=== PATIENT | female | born 1950 | race Caucasian/White ===

== ENCOUNTER 2020-02-20 10:01 | Outpatient (CLI) | payer OTHER, SELFPAY ==
--- NOTE | ~2020-02-20 | XR_ITS ---
EXAMINATION: XR chest 2V 02/20/2020 10:15 INDICATION: Chest pain and dyspnea PROCEDURE: 2 view chest COMPARISON: Comparison to multiple prior studies sequentially, with oldest reviewed study dated 02/03. FINDINGS: The lungs are clear. The cardiomediastinal silhouette is within normal limits. There are no pleural effusions. There is no pneumothorax suspected. IMPRESSION: 1: NO ACUTE CARDIOPULMONARY DISEASE. Reviewed, dictated and finalized at location A.
== END 2020-02-20 10:02 | disposition home or self-care (01) ==
LOC: ANHIMG 10:05
PROVIDERS: PCP Family Medicine; Visit Provider Physician Assistant
DX: R07.89 Other chest pain (principal)
CPT/HCPCS: 71046

== ENCOUNTER 2020-04-06 12:27 | Outpatient (CLI) | payer OTHER, SELFPAY ==
--- NOTE | 2020-04-09 11:26 | WPDPFTINT ---
PFT Interpretation PFT Interpretation: This PFT met all criteria for ATS standards and reproducibility FEV/FVC post bronchodilator 82% of predicted FEV1 111% of predicted or 1.99 liters FVC 96% or 2.43 liters TLC 89% or 3.78 liters RV 70% RV/TLC 31 % DLCO 85% of predicted when adjusted for alveolar volume but not adjusted for hemoglobin Flow volume loops were normal Impression: Normal PFT. Clinical correlation is advised.
--- NOTE | 2020-04-09 11:28 | WPDSIXMINUTE ---
Six Minute Walk Six Minute Walk: The patients O2 sats started 96% and dropped as low as 91% Total walk distance 396 meters conclusion: This patient does not qualify for home oxygen therapy
== END 2020-04-06 12:28 | disposition home or self-care (01) ==
PROVIDERS: PCP Family Medicine; Visit Provider Internal Medicine Critical Care Medicine
DX: R06.02 Shortness of breath (principal)
CPT/HCPCS: 94060; 94618; 94726; 94729

== ENCOUNTER 2020-04-11 17:09 | Emergency (ER) | payer OTHER, SELFPAY ==
--- NOTE | ~2020-04-11 | CT_ITS ---
EXAMINATION: CT abdomen pelvis w con INDICATION: Lower abdominal pain TECHNIQUE: Computed tomographic images of the abdomen and pelvis were obtained after the administrati on of 100 cc of Omnipaque 350 intravenous contrast. The dose-length product (DLP) was 525.07 mGy-cm. Automated exposure control and iterative reconstruction technique were employed. COMPARISON: 10/16/2019 FINDINGS: Minimal dependent atelectasis is present in the lung bases. The heart size is normal. The g allbladder is surgically absent. There is mild enlargement of the common bile duct and central intrah epatic ducts which is likely due to post cholecystectomy state. The liver, spleen, pancreas, and adre nal glands are normal. Hypoattenuating lesions in the kidneys, measuring up to 3 mm, are too small to characterize but likely represent cysts. No pathologically enlarged abdominal or pelvic lymph nodes are identified. Colonic diverticulosis is noted. There is wall thickening of the sigmoid colon with e dematous stranding of the perisigmoid fat. There is no evidence of perforation or abscess. There is m oderate lumbar spondylosis at L5-S1. IMPRESSION: 1. Acute uncomplicated sigmoid diverticulitis. Reviewed, dictated and finalized at location A.
[2020-04-11 17:30] VITALS: BP 121/96; PULSE 95; RESP 16; TEMP 36.3; O2SAT 97
[2020-04-11 17:41] LABS: Basophils Percent Auto 0.3 % (0.2-1.2); Eosinophils Absolute Auto 0.1 K/mm3 (0-0.3); Eosinophils Percent Auto 0.8 % (0-4.4); Hematocrit 40.8 % (37.0-47.0); Hemoglobin 13.3 g/dL (12.0-15.0); Immature Granulocyte Absolute 0.03 K/mm3 (0.00-0.031); Immature Granulocyte Percent A 0.3 % (0-0.5); Lymphocytes Absolute Auto 1.52 K/mm3 (0.9-3.2); Lymphocytes Percent Auto 15.9 % (18.3-44.2); Mean Corpuscular HGB Conc 32.6 g/dl (32-36); Mean Corpuscular Hemoglobin 29.4 pg (26-34); Mean Corpuscular Volume 90.1 fl (80-100); Mean Platelet Volume 8.6 fl (7.4-10.4); Monocytes Absolute Auto 0.8 K/mm3 (0.1-0.6); Monocytes Percent Auto 8.6 % (2.6-8.5); Neutrophils Absolute Auto 7.1 K/mm3 (1.3-6.7); Neutrophils Percent Auto 74.1 % (45.5-73.1); Platelet Count Result 249 k/mm3 (150-375); Red Blood Count 4.53 M/mm3 (4.2-5.4); White Blood Count 9.6 K/mm3 (4.5-10.0)
[2020-04-11 17:57] LABS: Alanine Aminotransferase 14 U/L (4-35); Albumin Level 4.1 g/dL (3.5-5.1); Alkaline Phosphatase 84 U/L (38-126); Aspartate Amino Transferase 22 U/L (14-36); Bilirubin,Total 0.8 mg/dL (0.2-1.3); Blood Urea Nitrogen 11 mg/dL (7-17); Calcium 8.8 mg/dL (8.4-10.2); Carbon Dioxide 26 mmol/L (22-30); Chloride 103 mmol/L (98-107); Estimated CRCL calculation 53 ml/min; Estimated Glomerular Filt Rate > 60; Glucose 114 mg/dL (65-105); Lipase 22 U/L (23-300); Potassium 4.1 mmol/L (3.4-5.0); Sodium 136 mmol/L (137-145)
[2020-04-11 18:05] LABS: Add Urine Microscopic? YES; Appearance Urine Clear (Clear); Bacteria Urine Trace /hpf; Bilirubin Urine Negative (Negative); Blood Urine Negative (Negative); Color Urine Yellow (Yellow); Glucose Urine UA Negative (Negative); Ketones Urine Negative (Negative); Leukocyte Esterase Ur 2+ LEU/UL (Negative); Mucus Urine Heavy /lpf; Nitrate Urine Negative (Negative); Protein Urine Negative (Negative); Specific Grav Ur 1.027 (1.001-1.035); Squamous Epithelial Cell Urine Occasional /hpf (Few); Urobilinogen Urine Negative mg/dL (<2.0); WBC Urine 31-50 /hpf
--- NOTE | 2020-04-11 18:35 | ED.ABDPAIN ---
HPI - Abdominal Pain General Chief Complaint: Abdominal Pain Stated Complaint: I have diverticulitis Time Seen by Provider: 04/11/20 18:34 History of Present Illness HPI narrative: Lower abdoinal pain since Monday. Moderate intensity. Feels the same as previous diverticulitis. Started antibiotics that her PCP gave her a few months ago incase she had a flare while on vacation. Developed nausea today, which made her concerned because she had never had this in the past. Related Data Home Medications Medication Instructions Recorded Confirmed aspirin 325 mg tablet 325 mg PO DAILY 09/19/19 03/04/20 calcium carbonate 500 mg (1,250 1 tablet PO BID 09/19/19 03/04/20 mg)-vitamin D3 200 unit tablet psyllium husk 0.52 gram capsule 0.52 gm PO DAILY 10/31/19 03/04/20 Allergies Allergy/AdvReac Type Severity Reaction Status Date / Time atorvastatin Allergy Unknown mouth Verified 02/17/20 14:39 sores and swelling diazepam Allergy Unknown hyper Verified 02/17/20 14:39 hydrocodone Allergy Unknown tongue Verified 02/17/20 14:39 swelling montelukast Allergy Unknown Cough Verified 02/17/20 14:39 oxycodone Allergy Unknown Unknown Verified 02/17/20 14:39 rosuvastatin Allergy Unknown sore mouth Verified 02/17/20 14:39 and gingiva Sulfa (Sulfonamide Allergy Unknown Unknown Verified 02/17/20 14:39 Antibiotics) tramadol Allergy Unknown unknown Verified 02/17/20 14:39 SUNSCREENS Allergy Intermediate ITCHING Uncoded 02/17/20 14:39 Review of Systems Review of Systems: All systems reviewed & are unremarkable except as noted in HPI and below Constitutional: Constitutional: Denies fever(s) Cardiovascular: Cardiovascular: Denies chest pain Respiratory: Respiratory: Denies dyspnea Gastrointestinal: Gastrointestinal: Reports abdominal pain, Denies diarrhea, Reports nausea and Denies vomiting Genitourinary: Genitourinary: Denies hematuria and Denies dysuria Musculoskeletal: Musculoskeletal: Denies back pain [facility] Past Medical History Medical History Diverticulitis (~01/13/18) multiple episodes DVT (deep venous thrombosis) (~2010) DVT prophylaxis FH: colon polyps History of pulmonary embolism (~2010) 2010 Normal colonoscopy 2017 no polyps. 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 on her hand not caodaism History of tonsillectomy Hx of cholecystectomy (~2016) Family History Family History Father Carcinoma of colon Family history of hypercholesterolemia Hypertension Family history of cardiovascular disease Family history of heart disease in male family member before age 55 Mother Carcinoma of colon Family history of hypercholesterolemia Acute myocardial infarction CHF (congestive heart failure) Social History Social History Smoking status: Never smoker Alcohol intake: current Substance use: never Substance use type: does not use Gender identity (if verbalized by the patient): Female Spiritual care concerns: No Agree to blood products: Yes Exam Const: General: healthy appearing, no acute distress and alert Orientation/consciousness: patient oriented x3 HENMT: Head: normal to inspection Neck: Neck: normal visual inspection and no lymphadenopathy Chest: Chest palpation & inspection: no tenderness Resp: Effort & Inspection: normal respiratory effort Auscultation: clear to auscultation bilaterally, no rales, no rhonchi and no wheezes Cardio: Jugular v
== END 2020-04-11 19:45 | disposition home or self-care (01) ==
PROVIDERS: Emergency Medicine; Emergency Provider Emergency Medicine; PCP Family Medicine
DX: K57.32 Diverticulitis of large intestine without perforation or abscess without bleeding (principal); Z79.82 Long term (current) use of aspirin; Z86.718 Personal history of other venous thrombosis and embolism; Z86.711 Personal history of pulmonary embolism
CPT/HCPCS: 36415; 74177; 80053; 81001; 83690; 85025; 87086; 99284; Q9967

== ENCOUNTER 2020-07-22 13:38 | Outpatient (CLI) | payer OTHER, SELFPAY ==
--- NOTE | 2020-07-22 14:53 | ECG_ITS ---
Measurements Intervals Jenkins Rate: 71 P: 35 MI: 176 QRS: 5 QRSD: 95 T: 20 QT: 381 QTc: 414 Interpretive Statements SINUS RHYTHM DELAYED PRECORDIAL R/S TRANSITION BASELINE ARTIFACT- I, II, III, AVR, AVL BORDERLINE ECG Electronically Signed On 07-22-2020 15:00:25 CDT by Wale Martinez D.O.
[2020-07-22 15:13] LABS: Hematocrit 41.4 % (37.0-47.0); Hemoglobin 13.5 g/dL (12.0-15.0)
== END 2020-07-22 13:39 | disposition home or self-care (01) ==
LOC: ANHSURGERY 13:40
PROVIDERS: Anesthesiology; PCP Family Medicine; Visit Provider Surgery
DX: Z01.818 Encounter for other preprocedural examination (principal); K57.32 Diverticulitis of large intestine without perforation or abscess without bleeding; E78.2 Mixed hyperlipidemia
CPT/HCPCS: 36415; 85014; 85018; 86850; 86900; 86901; 93005

== ENCOUNTER 2020-07-25 02:12 | Outpatient (CLI) | payer OTHER, SELFPAY ==
[2020-07-25 18:59] LABS: SARS-CoV-2 RNA PCR Negative
== END 2020-07-25 02:13 | disposition home or self-care (01) ==
LOC: ANHCOVIDDT 02:13
PROVIDERS: PCP Family Medicine; Visit Provider Surgery
DX: Z01.812 Encounter for preprocedural laboratory examination (principal); Z20.828 Contact with and (suspected) exposure to other viral communicable diseases
CPT/HCPCS: 87635; C9803; U0003

== ENCOUNTER 2020-07-28 14:07 | Inpatient (IN) | payer OTHER, SELFPAY ==
[2020-07-22 14:05] VITALS: BMI 30.9
[2020-07-22 14:06] VITALS: BP 142/89; PULSE 83; RESP 18; TEMP 37.8; O2SAT 96
[2020-07-28] VITALS (15 sets, daily range): BP systolic 94–125; BP diastolic 56–83; PULSE 66–87; RESP 10–18; TEMP 36–37; O2SAT 95–99
--- NOTE | 2020-07-28 07:35 | WPDANESEPPF ---
Anes - Initial Pre Proc Eval Procedure: Operation Date: 07/28/20 09:00 Proposed Procedures p Hand Assisted Laparoscopic Sigmoid Colectomy - Hermann Gant DO Date/Time: 07/28/20 07:35 Surgeon: Hermann Gant DO Pre Op Diagnosis: Diverticulitis Patient Data Age: 70 Gender: F Height: 5 ft 1 in Weight: 74.2 kg Last Vital Signs Temp 37.8 C H 07/22/20 14:06 Pulse 83 07/22/20 14:06 Resp 18 07/22/20 14:06 BP 142/89 H 07/22/20 14:06 Pulse Ox 96 07/22/20 14:06 Allergies Allergy/AdvReac Type Severity Reaction Status Date / Time atorvastatin Allergy Unknown TONGUE Verified 07/28/20 07:15 BURNING Sulfa (Sulfonamide Allergy Unknown Unknown Verified 07/28/20 07:15 Antibiotics) diazepam AdvReac Unknown hyperactivi Verified 07/28/20 07:15 ty montelukast AdvReac Unknown Cough Verified 07/28/20 07:15 oxycodone AdvReac Unknown TONGUE Verified 07/28/20 07:15 BURNING rosuvastatin AdvReac Unknown tongue Verified 07/28/20 07:15 burning SUNSCREENS Allergy Intermediate ITCHING Uncoded 07/22/20 13:53 Home Medications Medication Instructions Recorded Confirmed Type aspirin 325 mg tablet 325 mg PO DAILY 09/19/19 07/28/20 History psyllium husk 0.52 gram capsule 1.5 gm PO BID 10/31/19 07/28/20 History budesonide-formoterol HFA 160 1 puff INHALATION Q12H #10.2 gm 03/23/20 07/28/20 Rx mcg-4.5 mcg/actuation aerosol inhaler inhalational spacing device #1 each 03/23/20 04/24/20 Rx aspirin [Aspirin Low Dose] 81 mg PO DAILY 07/22/20 07/28/20 History calcium carbonate-vitamin D3 2 cap PO BID 07/22/20 07/28/20 History [Calcium 600 + D(3)] ezetimibe [Zetia] 10 mg PO HS 07/22/20 07/28/20 History omeprazole 40 mg PO QAM 07/22/20 07/28/20 History simvastatin 20 mg PO HS 07/22/20 07/28/20 History Patient hx anesthesia problems: none Family hx anesthesia problems: none PMFSH Past Medical History Medical History Cough productive of purulent sputum DVT (deep venous thrombosis) (~2010) DVT prophylaxis Exertional dyspnea FH: colon polyps History of pulmonary embolism (~2010) [facility] current use of anticoagulants with INR goal of 2.0-3.0 Normal colonoscopy 2017 no polyps. repeat in 5 years Normal nuclear stress test 5.18.20 Postmenopausal Sepsis Shingles Surgical History Surgical History H/O shoulder surgery x2 History of adenoidectomy History of appendectomy (~2009) History of hysterectomy (~1997) History of knee surgery History of surgical removal of squamous cell carcinoma of skin of mandaeism region on her hand not mandaeism History of tonsillectomy Hx of cholecystectomy (~2016) Family History Family History Father Carcinoma of colon Family history of hypercholesterolemia Hypertension Family history of cardiovascular disease Family history of heart disease in male family member before age 55 Mother Carcinoma of colon Family history of hypercholesterolemia Acute myocardial infarction CHF (congestive heart failure) Social History Social History Smoking status: Never smoker Alcohol intake: current Alcohol use details: VERY RARELY Substance use: never Substance use type: does not use Living arrangements: with family Gender identity (if verbalized by the patient): Female Spiritual care concerns: No Agree to blood products: Yes Anes - Eval Final PreProcedure Day of Procedure 07/28/20 07:35 Patient weight: obese Heart: regular rate and rhythm Lungs: clear to auscultation Airway: Mallampati scale class II Neurological: alert and oriented Last oral intake: >/= 8 hours ASA classification: III Emergent: no Anesthetic plan: proceed Anesthesia type and monitoring: general ETT and standard monitorin
[2020-07-28] MEDS: LACTATED RINGERS 1,000 ML 30 ML IV CONT ×2 (07:40→12:41)
[2020-07-28] MEDS: ACETAMINOPHEN 500 MG TABLET 1000 MG PO ×2 (07:41→17:41)
[2020-07-28] MEDS: KETOROLAC 15 MG/ML VIAL (*BKC) IV PUSH (07:41)
--- NOTE | 2020-07-28 08:50 | PM.IMHP ---
H&P: HPI History of Present Illness Date/Time: 07/28/20 08:50 Chief complaint: Diverticulitis Narrative: Gwen Cruz is a 70 year old female who presents with previous episodes of diverticulitis. She has been hospitalized twice for this in the past. She continues to have episodes about every 6 months and would like to have surgery to prevent this. Review of Systems Review of Systems: All systems reviewed & are unremarkable except as noted in HPI and below Constitutional: Constitutional: Denies chills, Denies fever(s), Denies headache(s) and Denies weight loss Eyes: Eyes: Denies change in vision ENT: Denies dizziness, Denies headache(s), Denies neck mass and Denies throat swelling Cardiovascular: Cardiovascular: Denies chest pain, Denies lightheadedness and Denies dyspnea Respiratory: Respiratory: Denies cough, Denies dyspnea and Denies wheezing Gastrointestinal: Gastrointestinal: Denies abdominal pain, Denies change in bowel habits, Denies nausea and Denies vomiting Genitourinary: Genitourinary: Denies hematuria and Denies dysuria Musculoskeletal: Musculoskeletal: Reports as per HPI Integumentary/Breasts: Skin/Breast: Reports as per HPI Neurologic: Denies dizziness and Denies headache(s) Allergic/Immunologic: Allergic/Immunologic: Denies throat swelling and Denies wheezing PMFSH Past Medical History Medical History Cough productive of purulent sputum DVT (deep venous thrombosis) (~2010) DVT prophylaxis Exertional dyspnea FH: colon polyps History of pulmonary embolism (~2010) 2010 [employer] operations [employer] current use of anticoagulants with INR goal of 2.0-3.0 Normal colonoscopy 2018 no polyps. repeat in 5 years Normal nuclear stress test 5.18.20 Postmenopausal Sepsis Shingles Surgical History Surgical History H/O shoulder surgery x2 History of adenoidectomy History of appendectomy (~2009) History of hysterectomy (~1997) History of knee surgery History of surgical removal of squamous cell carcinoma of skin of jew region on her hand not jew History of tonsillectomy Hx of cholecystectomy (~2016) Family History Family History Father Carcinoma of colon Family history of hypercholesterolemia Hypertension Family history of cardiovascular disease Family history of heart disease in male family member before age 55 Mother Carcinoma of colon Family history of hypercholesterolemia Acute myocardial infarction CHF (congestive heart failure) Social History Social History Smoking status: Never smoker Alcohol intake: current Alcohol use details: VERY RARELY Substance use: never Substance use type: does not use Living arrangements: with family Gender identity (if verbalized by the patient): Female Spiritual care concerns: No Agree to blood products: Yes Meds Home Medications and Allergies Home Medications Medication Instructions Recorded Confirmed Type aspirin 325 mg tablet 325 mg PO DAILY 09/19/19 07/28/20 History psyllium husk 0.52 gram capsule 1.5 gm PO BID 10/31/19 07/28/20 History budesonide-formoterol HFA 160 1 puff INHALATION Q12H #10.2 gm 03/23/20 07/28/20 Rx mcg-4.5 mcg/actuation aerosol inhaler inhalational spacing device #1 each 03/23/20 04/24/20 Rx aspirin [Aspirin Low Dose] 81 mg PO DAILY 07/22/20 07/28/20 History calcium carbonate-vitamin D3 2 cap PO BID 07/22/20 07/28/20 History [Calcium 600 + D(3)] ezetimibe [Zetia] 10 mg PO HS 07/22/20 07/28/20 History omeprazole 40 mg PO QAM 07/22/20 07/28/20 History simvastatin 20 mg PO HS 07/22/20 07/28/20 History Allergies Allergy/AdvReac Type Severity Reaction Status Date / Time atorvastatin Allergy Unknown TONGUE Verified 07/28/20 07:15 BURNING Sulfa (Sulfonamide Cody
[2020-07-28] MEDS: HEPARIN SODIUM 5,000 UNITS/ML VIAL 5000 UNITS SUB-Q (08:58)
--- NOTE | 2020-07-28 09:21 | WPDHPUPDATE1 ---
History and Physical Update Update Date/Time: 07/28/20 09:21 History and Physical has been reviewed, including an updated exam of the patient. There are NO changes in the patient's condition. Risks, benefits, and alternatives have been discussed and questions answered. Patient agrees to proceed with procedure.
[2020-07-28] MEDS: ceFAZolin 2 GM/D5W 50 ML 2 GM/50 ML BAG IVPB (09:33)
[2020-07-28] MEDS: metroNIDAZOLE 500 MG/ISO 100ML 500 MG/100 ML BAG 100 MG IVPB (09:45)
--- NOTE | 2020-07-28 12:28 | PM.PROC ---
Procedure Note - Detailed Date of procedure: 07/28/20 Pre-op diagnosis: Diverticulitis sigmoid colon Post-op diagnosis: same Procedure performed: Hand assisted laparoscopic sigmoid colectomy with colorectal anastomosis Description of procedure: Procedure as well as risks benefits and alternatives were explained to the patient. Written consent was obtained and placed in chart prior to procedure. Patient was brought back to surgical suite. She was placed supine on operating table. Time-out was done to confirm patient procedure. She was then intubated by the anesthesia department. She was re-positioned to modified lithotomy position. Her abdomen was prepped and draped in sterile fashion using chlorhexidine prep. Her rectum was irrigated with Betadine and her perirectal area was prepped and draped in sterile fashion using Betadine prep. A 7 centimeter vertical incision was made just inferior to the umbilicus using a 15 blade scalpel. Electrocautery was used for hemostasis and for dissection down through Birdie's fascia. The linea alba was then incised using electrocautery. The peritoneum was bluntly entered using a curved hemostats. A carefully inspected the abdomen through the small hand port incision, and then placed the wound protector at this incision followed by the gel port with a 5 millimeter trocar placed through it. Carbon dioxide insufflation was then used to create a pneumoperitoneum. The abdomen was inspected, and no significant abnormalities were identified. The patient was then placed in steep Trendelenburg position and rotated to the right. Exparel was infiltrated bilaterally along the abdominal wall to perform a transversus abdominis plane block. A 5 millimeter incision was made in the suprapubic region and in the right upper quadrant and 5 millimeter ports were placed under direct visualization. A 12 millimeter incision was made in the right lower quadrant, and a 12 millimeter port was placed under direct visualization. I placed my left hand through the GelPort and carefully inspected the colon. The sigmoid colon was retracted anteriorly to tent up the inferior mesenteric artery and mesocolon. The medial side of the peritoneum was scored using hook electrocautery. I entered into the avascular retroperitoneal plane and continued the medial to lateral dissection. The left ureter was identified and preserved in its location throughout the entire case. The continued dissection with hook electrocautery and ligasure bipolar cautery to clear off the adventitia around the inferior mesenteric artery. Once the inferior mesenteric artery was isolated, I then ligated it with the ligasure bipolar cautery. The ureter was identified and position was verified before ligating the vessel. I then continued along the medial to lateral plane and dissected out to the lateral peritoneal attachments of the descending and sigmoid colon. I then continued this dissection distally along the upper rectum. The sigmoid colon was then retracted further medially and the lateral peritoneal attachments were taken down using hook electrocautery. I continued this dissection up to the descending colon using ligasure bipolar cautery. The descending colon appeared mobile enough to come down into the pelvis. I then cleared off an area on the upper rectum and took down the mesorectum using ligasure bipolar cautery. The echelon 60 millimeter blue load stapler was then advanced across the upper rectum and clamped and fired. This freed up our rectum completely. The staple line appeared secure. Indocyanine green was then infused intravenously to assess for perfusion to the colon and rectal stump. Perfusion appeared adequate at both ends. The patient was then flattened out in bed and the pneumoperitoneum was released. The sigmoid colon was then delivered through the wound protector and the GelPort was removed. The segment of colon was inspected. I identified an area along the alissa
--- NOTE | 2020-07-28 14:15 | ADMGEN ---
This patient, Gwen Cruz, was admitted to [facility] S[facility] Room 300-01. Patient/family oriented to hospital policies and general routines including ID bracelet, bed and alarms, visiting hours, pain management, procedures, bathroom and other care routines, personal items, smoking policy, room service/diet, and visiting hours. Valuables list has been completed. Information on how to activate the Rapid Response Team has been discussed. Patient/Family are encouraged to report perceived risks to care and to ask questions if they do not understand what they are told or what they should do.
[2020-07-28] MEDS: LACTATED RINGERS 1,000 ML 100 ML IV CONT (14:39)
[2020-07-28] MEDS: HYDROmorphone HCL INJ (*CRX) 1 MG/ML SYR IV PUSH (19:18)
[2020-07-28] MEDS: SIMVASTATIN 20 MG TABLET PO (19:58)
[2020-07-28] MEDS: ENOXAPARIN 30 MG/0.3 ML SYRINGE SUB-Q (19:58)
[2020-07-29] VITALS (10 sets, daily range): BP systolic 97–121; BP diastolic 58–79; PULSE 66–71; RESP 16–18; TEMP 36–36.7; O2SAT 95–97
[2020-07-29] MEDS: ACETAMINOPHEN 500 MG TABLET 1000 MG PO ×2 (00:20→06:19)
[2020-07-29] MEDS: LACTATED RINGERS 1,000 ML 100 ML IV CONT (01:19)
[2020-07-29 05:47] LABS: Basophils Percent Auto 0.2 % (0.2-1.2); Hematocrit 36.5 % (37.0-47.0); Hemoglobin 12.1 g/dL (12.0-15.0); Immature Granulocyte Absolute 0.07 K/mm3 (0.00-0.031); Immature Granulocyte Percent A 0.5 % (0-0.5); Lymphocytes Absolute Auto 1.04 K/mm3 (0.9-3.2); Mean Corpuscular HGB Conc 33.2 g/dl (32-36); Mean Corpuscular Hemoglobin 29.5 pg (26-34); Mean Platelet Volume 8.7 fl (7.4-10.4); Monocytes Absolute Auto 0.7 K/mm3 (0.1-0.6); Monocytes Percent Auto 5.2 % (2.6-8.5); Neutrophils Absolute Auto 11.1 K/mm3 (1.3-6.7); Neutrophils Percent Auto 86.1 % (45.5-73.1); Platelet Count Result 267 k/mm3 (150-375); Red Cell Distribution Width 13.8 % (11.5-14.5); White Blood Count 12.9 K/mm3 (4.5-10.0)
[2020-07-29 06:08] LABS: Anion Gap 6 mmol/L (8-16); Blood Urea Nitrogen 11 mg/dL (7-17); Calcium 9.1 mg/dL (8.4-10.2); Carbon Dioxide 30 mmol/L (22-30); Chloride 104 mmol/L (98-107); Estimated CRCL calculation 55 ml/min; Estimated Glomerular Filt Rate > 60; Glucose 140 mg/dL (65-105); Potassium 4.9 mmol/L (3.4-5.0); Sodium 140 mmol/L (137-145)
--- NOTE | 2020-07-29 07:47 | P.PNAN_ITS ---
Anes - Prog Note Post-Op Date/Time: 07/29/20 07:47 Cardiovascular status: normal Respiratory status: normal Airway patency: baseline Mental status: baseline Post-Op hydration status: normal Vital Signs: Last Vital Signs Temp 36.4 C L 07/29/20 04:00 Pulse 68 07/29/20 04:00 Resp 16 07/29/20 04:00 BP 100/58 L 07/29/20 04:00 Pulse Ox 96 07/29/20 04:00 Pain Score (VAS): 0 I/O: Intake & Output 07/28/20 07/28/20 07/29/20 15:59 23:59 07:59 Intake Total 649 450 3231 Output Total 60 250 1250 Balance 90 400 550 Laboratory Tests 07/29/20 05:11 07/29/20 05:11 07/29/20 07/29/20 05:11 05:11 WBC 12.9 H RBC 4.10 L Hgb 12.1 Hct 36.5 L MCV 89.0 MCH 29.5 MCHC 33.2 RDW 13.8 Plt Count 267 MPV 8.7 Immature Gran % (Auto) 0.5 Neut % (Auto) 86.1 H Lymph % (Auto) 8.0 L [place] % (Auto) 5.2 Eos % (Auto) 0.0 Baso % (Auto) 0.2 Lymph # (Auto) 1.04 [place] # (Auto) 0.7 H Eos # (Auto) 0.0 Baso # (Auto) 0.0 Abs Immat Gran (auto) 0.07 H Absolute Neuts (auto) 11.1 H Absolute Nucleated RBC 0.0 Nucleated RBC % 0.0 Sodium 140 Potassium 4.9 Chloride 104 Carbon Dioxide 30 Anion Gap 6 L BUN 11 Creatinine 0.80 Estim Creat Clear Calc 55 Estimated GFR > 60 Glucose 140 H Calcium 9.1 Post-procedural complaints: none Patient Feedback: Patient satisfied with anesthetic care.
[2020-07-29] MEDS: ENOXAPARIN 30 MG/0.3 ML SYRINGE SUB-Q ×2 (08:19→20:13)
[2020-07-29] MEDS: PANTOPRAZOLE 40 MG TABLET PO (08:19)
[2020-07-29] MEDS: ASPIRIN 81 MG ENTERIC TABLET PO (08:20)
--- NOTE | 2020-07-29 10:11 | PM.PNGS ---
Progress Note: A&P Assessment and Plan (1) Diverticulitis large intestine w/o perforation or abscess w/o bleeding: Code(s): K57.32 - Diverticulitis of large intestine without perforation or abscess without bleeding Status: Acute Assessment and Plan: Advance to full liquids today. Increase activity. Soliman out and stop IV fluids. Transition to oral pain meds. (2) GERD (gastroesophageal reflux disease): Qualifiers: Esophagitis presence: with esophagitis Qualified Code(s): K21.0 - Gastro-esophageal reflux disease with esophagitis Code(s): K21.9 - Gastro-esophageal reflux disease without esophagitis Status: Acute (3) History of pulmonary embolism: Onset Date: ~2010 Code(s): Z86.711 - Personal history of pulmonary embolism Status: Acute Assessment and Plan: Continue DVT prophylaxis Subjective Subjective Date/Time Seen: 07/29/20 10:11 Passing flatus, no BM yet. Pain controlled. Tolerating clears. No n/v. Exam GI: Inspection: incision (intact with glue) GI Palp: Yes Tenderness to palpation present (GI) (incisional) Auscultation: normal bowel sounds Objective Data Vital Signs Vital Signs: Vital Signs - 24 hr 07/28/20 12:41 07/28/20 12:55 07/28/20 13:10 Temperature 36.4 C L Pulse Rate 83 76 74 Respiratory Rate 10 L 12 12 Blood Pressure 115/69 101/64 105/66 Pulse Oximetry 96 97 98 07/28/20 13:20 07/28/20 13:35 07/28/20 13:50 Temperature Pulse Rate 69 66 76 Respiratory Rate 12 12 16 Blood Pressure 101/71 99/70 L 114/66 Pulse Oximetry 96 99 99 07/28/20 14:07 07/28/20 14:22 07/28/20 14:52 Temperature 36.3 C L 36.3 C L 36.0 C L Pulse Rate 72 71 84 Respiratory Rate 16 16 16 Blood Pressure 114/67 112/66 120/73 Pulse Oximetry 99 99 98 07/28/20 15:52 07/28/20 16:43 07/28/20 19:21 Temperature 36.2 C L Pulse Rate 85 75 Respiratory Rate 16 18 Blood Pressure 125/82 Pulse Oximetry 99 98 95 07/28/20 19:52 07/28/20 23:52 07/29/20 04:00 Temperature 36.8 C 36.4 C 36.4 C L Pulse Rate 87 80 68 Respiratory Rate 16 16 16 Blood Pressure 116/66 94/56 L 100/58 L Pulse Oximetry 95 96 96 07/29/20 07:52 07/29/20 08:00 07/29/20 08:25 Temperature 36.0 C L Pulse Rate 71 71 Respiratory Rate 18 18 Blood Pressure 97/59 L Pulse Oximetry 97 97 96 07/29/20 08:36 Temperature Pulse Rate Respiratory Rate Blood Pressure 104/60 Pulse Oximetry Intake/Output Intake/Output: Intake & Output 07/26/20 07/27/20 07/28/20 07/29/20 23:59 23:59 23:59 23:59 Intake Total 800 2040 Output Total 310 1250 Balance 490 790 Meds/Results Medications: Active Medications Generic Name Dose Route Start Last Admin Trade Name Freq PRN Reason Stop Dose Admin Acetaminophen 1,000 mg 07/28/20 18:00 07/29/20 06:19 Acetaminophen 500 Mg Tablet PO 1,000 mg Q6HR SERENE Administration Artificial Tears 1 drop 07/28/20 15:39 07/28/20 17:41 Artificial Tears Op Soln 15 Ml Bottle EACH EYE 1 drop QID PRN Administration Dry Eye(s) Aspirin 81 mg 07/29/20 09:00 07/29/20 08:20 Aspirin 81 Mg Enteric Tablet PO 81 mg DAILY SERENE Administration Budesonide/Formoterol Fumarate 1 puff 07/28/20 20:00 07/29/20 08:29 Budesonide/Form 160-4.5 Mcg (*Sp) INHALATION 1 puff Q12HRT SERENE Administration Enoxaparin Sodium 30 mg 07/28/20 21:00 07/29/20 08:19 Enoxaparin 30 Mg/0.3 Ml Syringe SUB-Q 30 mg Q12HR SERENE Administration Hydromorphone HCl 1 mg 07/28/20 14:07 07/28/20 19:18 Hydromorphone Hcl Inj (*Crx) 1 Mg/Ml Syr IV PUSH 1 mg Q2H PRN Administration Pain Rated 7-10 Hydromorphone HCl 0.5 mg 07/28/20 14:07 Hydromorphone Hcl Inj (*Crx) 1 Mg/Ml Syr IV PUSH Q2H PRN Pain Rated 4-6 Ondansetron HCl 4 mg 07/28/20 14:07 Ondansetron Inj 4 Mg/2 Ml Vial IV PUSH Q4H PRN Nausea And Vomiting Pantoprazole Sodium 40 mg 07/29/20 09:00 07/29/20 08:19 Pantoprazole
[2020-07-29] MEDS: ACETAMINOPHEN 325 MG TABLET 650 MG PO (14:12)
[2020-07-29] MEDS: HYDROcodone/acetaminophen (*CRX) 10-325 MG TABLET 1 TAB PO (19:03)
[2020-07-29] MEDS: SIMVASTATIN 20 MG TABLET PO (20:12)
[2020-07-30] MEDS: HYDROcodone/acetaminophen (*CRX) 10-325 MG TABLET 1 TAB PO ×5 (00:06→22:48)
[2020-07-30 05:35] VITALS: BP 135/75; PULSE 72; RESP 18; TEMP 36.4; O2SAT 97
[2020-07-30 06:25] LABS: Anion Gap 4 mmol/L (8-16); Blood Urea Nitrogen 11 mg/dL (7-17); Calcium 8.6 mg/dL (8.4-10.2); Carbon Dioxide 34 mmol/L (22-30); Chloride 104 mmol/L (98-107); Estimated CRCL calculation 54 ml/min; Estimated Glomerular Filt Rate > 60; Glucose 97 mg/dL (65-105); Potassium 4.3 mmol/L (3.4-5.0); Sodium 142 mmol/L (137-145)
[2020-07-30 06:34] LABS: Hematocrit 34.4 % (37.0-47.0); Hemoglobin 11.2 g/dL (12.0-15.0); Mean Corpuscular HGB Conc 32.6 g/dl (32-36); Mean Corpuscular Hemoglobin 29.6 pg (26-34); Mean Corpuscular Volume 90.8 fl (80-100); Mean Platelet Volume 8.9 fl (7.4-10.4); Platelet Count Result 273 k/mm3 (150-375); Red Blood Count 3.79 M/mm3 (4.2-5.4); Red Cell Distribution Width 14.4 % (11.5-14.5); White Blood Count 10.1 K/mm3 (4.5-10.0)
[2020-07-30 08:00] VITALS: PULSE 72; RESP 18; O2SAT 97
[2020-07-30] MEDS: ASPIRIN 81 MG ENTERIC TABLET PO (08:28)
[2020-07-30] MEDS: ENOXAPARIN 30 MG/0.3 ML SYRINGE SUB-Q ×2 (08:28→20:23)
[2020-07-30] MEDS: PANTOPRAZOLE 40 MG TABLET PO (08:28)
[2020-07-30 14:00] VITALS: BP 123/74; PULSE 77; RESP 16; TEMP 36.5; O2SAT 91
--- NOTE | 2020-07-30 15:08 | PM.DS ---
DS: Admitting Diagnosis Admitting Diagnosis Admitting Diagnosis: Diverticulitis sigmoid colon DS: Discharge Diagnosis Discharge Diagnosis (1) Diverticulitis large intestine w/o perforation or abscess w/o bleeding: Code(s): K57.32 - Diverticulitis of large intestine without perforation or abscess without bleeding Status: Acute (2) History of pulmonary embolism: Onset Date: Code(s): Z86.711 - Personal history of pulmonary embolism Status: Acute (3) GERD (gastroesophageal reflux disease): Qualifiers: Esophagitis presence: with esophagitis Qualified Code(s): K21.0 - Gastro-esophageal reflux disease with esophagitis Code(s): K21.9 - Gastro-esophageal reflux disease without esophagitis Status: Acute DS: Summary Hospital Course Reason for hospitalization: Recurrent diverticulitis Hospital Course: This is a 70-year-old woman who presented with multiple prior episodes of diverticulitis. She has been placed on antibiotics several times and states that she seems to have a flare up of diverticulitis about every 6 months. She has been hospitalized twice in the past for this. She has not had any prior episodes of complicated diverticulitis requiring abscess drainage or other procedures. She now presents for elective sigmoid colectomy to prevent future episodes of diverticulitis. She underwent hand assisted laparoscopic sigmoid colectomy on 07/28/2020. Procedure was uncomplicated and she did well postoperatively. On postop day 1 she was tolerating clear liquid diet and was advanced to a full liquid diet.Her pain was well controlled. On postop day 2 she was advanced to a soft regular diet. She had noticed a couple small blood clots in her stool and wanted to stay in the hospital 1 more day. On postop day 3 her pain was well controlled. She was still tolerating a regular diet. She was up ambulating without much difficulty. She was remaining hemodynamically stable and afebrile. She was discharged on postop day 3. Status at Discharge Functional status at discharge: independent ambulation Overall status at discharge: patient is progressing back to baseline Time Spent with Patient Time attestation: Total time spent providing and/or coordinating discharge services: Time spent: Less than 30 minutes Exam Resp: Effort & Inspection: normal respiratory effort Auscultation: clear to auscultation bilaterally Cardio: Rate: regular rate Rhythm: regular rhythm Heart sounds: S1 normal heart sound present and S2 normal heart sound present GI: Inspection: non-distended and incision (C/D/I) GI Palp: No abdominal tenderness, Yes Soft to palpation and No Guarding due to palpation present (GI) Percussion: Yes normal to percussion Auscultation: normal bowel sounds DS: Data Data Completed and Pending Completed studies during hospitalization: Pending at discharge 07/28/20 10:49 Surgical [PTH] Routine Labs on day of discharge: Labs from last 24 hours 07/30/20 07/30/20 05:34 05:34 WBC 10.1 H RBC 3.79 L Hgb 11.2 L Hct 34.4 L MCV 90.8 MCH 29.6 MCHC 32.6 RDW 14.4 Plt Count 273 MPV 8.9 Sodium 142 Potassium 4.3 Chloride 104 Carbon Dioxide 34 H Anion Gap 4 L BUN 11 Creatinine 0.80 Estim Creat Clear Calc 54 Estimated GFR > 60 Glucose 97 Calcium 8.6 Discharge Plan Discharge Attending physician on discharge: Hermann Gant Discharging Clinician: Hermann Gant Patient Disposition: Home, Self-Care Activity: may shower and other - see discharge instructions Diet: as tolerated Wound Care Instructions: other - see discharge instructions Discharge Instructions: Postop instructions May shower, no bathing or soaking x2 weeks No lifting greater than 10 lb for 6 weeks Continue soft regular diet for the next week, then may resume a regular high-fiber diet as tolerated Ambulate around the house at least
--- NOTE | 2020-07-30 15:23 | PC.NURSE ---
Called Dr Gant about pt having 2 blood clots while having a bowel movement. Left message with his office.
--- NOTE | 2020-07-30 15:45 | PM.PNGS ---
Progress Note: A&P Assessment and Plan (1) Diverticulitis large intestine w/o perforation or abscess w/o bleeding: Code(s): K57.32 - Diverticulitis of large intestine without perforation or abscess without bleeding Status: Acute Assessment and Plan: Advance to soft diet today Will keep patient today since she is having a couple blood clots in her stool Possibly home tomorrow (2) History of pulmonary embolism: Onset Date: ~2010 Code(s): Z86.711 - Personal history of pulmonary embolism Status: Acute Assessment and Plan: DVT prophylaxis (3) GERD (gastroesophageal reflux disease): Qualifiers: Esophagitis presence: with esophagitis Qualified Code(s): K21.0 - Gastro-esophageal reflux disease with esophagitis Code(s): K21.9 - Gastro-esophageal reflux disease without esophagitis Status: Acute Subjective Subjective Date/Time Seen: 07/30/20 15:45 Bowels moving. No nausea or vomiting. Tolerating full liquids. She has noticed a couple clots that she passed with BM's. Exam GI: Inspection: non-distended and incision (C/D/I) GI Palp: Yes Soft to palpation and No Tenderness to palpation present (GI) Auscultation: normal bowel sounds Objective Data Vital Signs Vital Signs: Vital Signs - 24 hr 07/29/20 15:52 07/29/20 19:30 07/29/20 20:33 Temperature 36.6 C Pulse Rate 69 67 Respiratory Rate 18 18 Blood Pressure 112/62 Pulse Oximetry 97 95 95 07/29/20 21:43 07/30/20 05:35 07/30/20 08:00 Temperature 36.7 C 36.4 C Pulse Rate 66 72 72 Respiratory Rate 16 18 18 Blood Pressure 121/79 135/75 Pulse Oximetry 95 97 97 07/30/20 14:00 Temperature 36.5 C Pulse Rate 77 Respiratory Rate 16 Blood Pressure 123/74 Pulse Oximetry 91 Intake/Output Intake/Output: Intake & Output 07/27/20 07/28/20 07/29/20 07/30/20 23:59 23:59 23:59 23:59 Intake Total 800 2960 500 Output Total 310 2150 3 Balance 490 810 497 Meds/Results Medications: Active Medications Generic Name Dose Route Start Last Admin Trade Name Freq PRN Reason Stop Dose Admin Acetaminophen 650 mg 07/29/20 10:19 07/29/20 14:12 Acetaminophen 325 Mg Tablet PO 650 mg Q6HR PRN Administration Pain Rated 1-3 Hydrocodone Bitart/Acetaminophen 1 tab 07/29/20 10:10 Hydrocodone/Acetaminophen (*Crx) 5-325 Mg Tablet PO Q4H PRN Pain Rated 4-6 Hydrocodone Bitart/Acetaminophen 1 tab 07/29/20 10:10 07/30/20 11:22 Hydrocodone/Acetaminophen (*Crx) 10-325 Mg Tablet PO 1 tab Q4H PRN Administration Pain Rated 7-10 Artificial Tears 1 drop 07/28/20 15:39 07/28/20 17:41 Artificial Tears Op Soln 15 Ml Bottle EACH EYE 1 drop QID PRN Administration Dry Eye(s) Aspirin 81 mg 07/29/20 09:00 07/30/20 08:28 Aspirin 81 Mg Enteric Tablet PO 81 mg DAILY SERENE Administration Budesonide/Formoterol Fumarate 1 puff 07/28/20 20:00 07/30/20 07:58 Budesonide/Form 160-4.5 Mcg (*Sp) INHALATION 1 puff Q12HRT SERENE Administration Enoxaparin Sodium 30 mg 07/28/20 21:00 07/30/20 08:28 Enoxaparin 30 Mg/0.3 Ml Syringe SUB-Q 30 mg Q12HR SERENE Administration Hydromorphone HCl 1 mg 07/28/20 14:07 07/28/20 19:18 Hydromorphone Hcl Inj (*Crx) 1 Mg/Ml Syr IV PUSH 1 mg Q2H PRN Administration Pain Rated 7-10 Hydromorphone HCl 0.5 mg 07/28/20 14:07 Hydromorphone Hcl Inj (*Crx) 1 Mg/Ml Syr IV PUSH Q2H PRN Pain Rated 4-6 Ondansetron HCl 4 mg 07/28/20 14:07 Ondansetron Inj 4 Mg/2 Ml Vial IV PUSH Q4H PRN Nausea And Vomiting Pantoprazole Sodium 40 mg 07/29/20 09:00 07/30/20 08:28 Pantoprazole 40 Mg Tablet PO 40 mg QAM SERENE Administration Simvastatin 20 mg 07/28/20 21:00 07/29/20 20:12 Simvastatin 20 Mg Tablet PO 20 mg HS SERENE Administration Labs Labs: Laboratory Results - last 24 hr 07/30/20 07/30/20 05:34 05:34 WBC 10.1 H RBC 3.79 L Hgb 11.2 L Hct 3
--- NOTE | 2020-07-30 16:33 | PC.NURSE ---
Dr. Gant called and said to keep the pt tonight 07/30/20 and he will evaluate her in the morning. He is going to have blood levels checked in AM. Monitor for blood clots from rectum.
[2020-07-30 20:00] VITALS: O2SAT 98
[2020-07-30] MEDS: SIMVASTATIN 20 MG TABLET PO (20:23)
[2020-07-30 20:31] VITALS: O2SAT 98
[2020-07-30 22:00] VITALS: BP 107/66; PULSE 93; RESP 18; TEMP 37.1; O2SAT 92
[2020-07-31] MEDS: HYDROcodone/acetaminophen (*CRX) 10-325 MG TABLET 1 TAB PO (05:49)
[2020-07-31 06:00] VITALS: BP 126/70; PULSE 90; RESP 20; TEMP 37.7; O2SAT 100
[2020-07-31 06:06] LABS: Hematocrit 37.3 % (37.0-47.0); Hemoglobin 11.9 g/dL (12.0-15.0); Mean Corpuscular HGB Conc 31.9 g/dl (32-36); Mean Platelet Volume 8.4 fl (7.4-10.4); Platelet Count Result 271 k/mm3 (150-375); Red Cell Distribution Width 14.5 % (11.5-14.5); White Blood Count 8.3 K/mm3 (4.5-10.0)
[2020-07-31 06:21] LABS: Anion Gap 3 mmol/L (8-16); Blood Urea Nitrogen 9 mg/dL (7-17); Calcium 8.7 mg/dL (8.4-10.2); Carbon Dioxide 37 mmol/L (22-30); Chloride 99 mmol/L (98-107); Estimated CRCL calculation 54 ml/min; Estimated Glomerular Filt Rate > 60; Glucose 97 mg/dL (65-105); Potassium 3.9 mmol/L (3.4-5.0); Sodium 139 mmol/L (137-145)
[2020-07-31 07:59] VITALS: PULSE 87; RESP 18; O2SAT 93
[2020-07-31 08:00] VITALS: TEMP 36.9
[2020-07-31] MEDS: PANTOPRAZOLE 40 MG TABLET PO (08:20)
[2020-07-31] MEDS: ENOXAPARIN 30 MG/0.3 ML SYRINGE SUB-Q (08:20)
[2020-07-31] MEDS: ASPIRIN 81 MG ENTERIC TABLET PO (08:20)
[2020-07-31] MEDS: HYDROcodone/acetaminophen (*CRX) 5-325 MG TABLET 1 TAB PO (11:41)
== END 2020-07-31 15:15 | disposition home or self-care (01) | DRG 331 ==
LOC: ANH3MEDSUR 14:10
PROVIDERS: Admitting Provider Surgery; PCP Family Medicine; Visit Provider Surgery
PROC: 0D1E4Z4 Bypass Large Intestine to Cutaneous, Percutaneous Endoscopic Approach (ICD-10-PCS; principal; 2020-07-28 09:00)
DX: K57.32 Diverticulitis of large intestine without perforation or abscess without bleeding (principal); K21.00 Gastro-esophageal reflux disease with esophagitis, without bleeding; Z79.82 Long term (current) use of aspirin; Z79.899 Other long term (current) drug therapy; Z86.711 Personal history of pulmonary embolism; Z86.718 Personal history of other venous thrombosis and embolism; Z90.49 Acquired absence of other specified parts of digestive tract
CPT/HCPCS: 36415; 80048; 85025; 85027; 88307; 94640; A9270; C1729; C9290; J0330; J0690; J1100; J1170; J1644; J1650; J1885; J2250; J2370; J2405; J2704; J2710; J3010; J7120

== ENCOUNTER 2020-08-03 12:03 | Outpatient (CLI) | payer OTHER, SELFPAY ==
--- NOTE | ~2020-08-03 | XR_ITS ---
EXAMINATION: XR chest 2V 08/03/2020 12:22 INDICATION: Shortness of breath PROCEDURE: 2 view chest COMPARISON: Comparison to multiple prior studies sequentially, with oldest reviewed study dated 03/30. FINDINGS: The lungs are clear. The cardiomediastinal silhouette is within normal limits. There are no pleural effusions. There is no pneumothorax suspected. There are cholecystectomy clips. IMPRESSION: 1: NO ACUTE CARDIOPULMONARY DISEASE. Reviewed, dictated and finalized at location B.
== END 2020-08-03 12:04 | disposition home or self-care (01) ==
LOC: ANHIMG 12:13
PROVIDERS: PCP Family Medicine; Visit Provider Surgery
DX: R06.02 Shortness of breath (principal)
CPT/HCPCS: 71046

== ENCOUNTER 2020-08-04 06:52 | Outpatient (NON) | payer OTHER, SELFPAY ==
[2020-08-04 19:01] LABS: SARS-CoV-2 RNA PCR Negative
== END 2020-08-04 06:53 ==
PROVIDERS: PCP Family Medicine; Visit Provider Surgery
DX: Z20.828 Contact with and (suspected) exposure to other viral communicable diseases (principal); R06.02 Shortness of breath; R50.9 Fever, unspecified
CPT/HCPCS: 87635; C9803; U0003

== ENCOUNTER 2020-08-11 08:31 | Outpatient (CLI) | payer OTHER, SELFPAY ==
--- NOTE | 2020-08-16 12:13 | WPDPFTINT ---
PFT Interpretation PFT Interpretation: Methacholine Challenge Study: The patient started with an FEV1 of 1.87 liters or 104% and 1.68 liters or 94% at level 6 or 25 mg of Methacholine. This is a normal Methacholine Challenge study and rules out the possibility of Asthma
== END 2020-08-11 08:32 | disposition home or self-care (01) ==
PROVIDERS: PCP Family Medicine; Visit Provider Internal Medicine Critical Care Medicine
DX: R06.02 Shortness of breath (principal)
CPT/HCPCS: 94070; J7674

== ENCOUNTER → 2020-11-12 10:02 | Outpatient (CLI) | payer OTHER, SELFPAY ==
--- NOTE | ~2020-11-12 | MM_ITS ---
EXAMINATION: MM screening jen BI w pierre HISTORY: Screening TECHNIQUE: Craniocaudal and mediolateral oblique 3-D tomosynthesis images were obtained and synthetic 2-D images were generated. CAD analysis was submitted and interpreted. COMPARISON: Comparison to multiple prior studies sequentially, with oldest reviewed study dated 02/02. BREAST PARENCHYMAL COMPOSITION: There are scattered areas of fibroglandular density. FINDINGS: There is no evidence of suspicious mass, calcification, or architectural distortion to sugg est malignancy in either breast. There has been no suspicious interval change. IMPRESSION: 1. No mammographic evidence of malignancy. 2. Recommend routine screening mammography in one year. BI-RADS Category 1: Negative Reviewed, dictated and finalized at location A. 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
== END ==
PROVIDERS: PCP Family Medicine; Visit Provider Family Medicine
DX: Z12.31 Encounter for screening mammogram for malignant neoplasm of breast (principal)
CPT/HCPCS: 77063; 77067

== ENCOUNTER → 2021-10-27 12:47 | Outpatient (CLI) | payer OTHER, SELFPAY ==
--- NOTE | ~2021-10-27 | MR_ITS ---
EXAMINATION: MR cervical spine wo con DATE: 10/27/2021 13:32 INDICATION: Cervicalgia. TECHNIQUE: Magnetic resonance imaging (MRI) of the cervical spine was performed without intravenous c ontrast. Sequences included sagittal T2-weighted FSE, sagittal T2-weighted FS FSE, sagittal T1-weight ed FSE, axial MERGE and axial T2-weighted FSE. COMPARISON: None FINDINGS: Straightening of the normal cervical lordosis. T1 hyperintense hemangioma at T4. Vertebral body heigh ts are normal. Severe disc height loss with fibrovascular degenerative endplate changes at C5-C6. Mar row signal is otherwise unremarkable. Moderate disc height loss at C4-C5, C6-C7, T3-T4 and T4-T5 and mild disc height loss at C2-C3, C3-C4, C7-T1 and T2-T3. Cord signal intensity is normal. Cervical sof t tissues are unremarkable. The following disc levels are specifically discussed: C2-C3: Disc is mildly bulging. There is no uncovertebral joint osteoarthritis. There is moderate left and severe right facet joint osteoarthritis. There is minimal right neural foraminal stenosis. There is no central canal stenosis. C3-C4: Disc is mildly bulging. There is mild bilateral uncovertebral joint osteoarthritis. There is m ild right and moderate left facet joint osteoarthritis. There is mild bilateral neural foraminal sten osis. There is mild central canal stenosis. C4-C5: Disc is mildly bulging. There is mild bilateral uncovertebral joint osteoarthritis. There is m ild left and severe right facet joint osteoarthritis. There is mild bilateral, right greater than lef t neural foraminal stenosis. There is minimal central canal stenosis. C5-C6: Posterior disc osteophyte complex. There is moderate right and severe left uncovertebral joint osteoarthritis. There is mild right and moderate left facet joint osteoarthritis. There is mild to m oderate bilateral neural foraminal stenosis. There is mild central canal stenosis. C6-C7: Disc is bulging. There is moderate bilateral uncovertebral joint osteoarthritis. There is mild bilateral facet joint osteoarthritis. There is mild left and mild to moderate right neural foraminal stenosis. There is mild central canal stenosis. C7-T1: Disc is mildly bulging. There is no uncovertebral joint osteoarthritis. There is moderate righ t and severe left facet joint osteoarthritis. There is minimal bilateral neural foraminal stenosis. T here is no central canal stenosis. IMPRESSION: 1. Moderate to severe cervical spondylosis. Reviewed, dictated and finalized at location A. ISHING DIRECTOR
== END ==
PROVIDERS: PCP Family Medicine; Visit Provider Family Medicine
DX: M54.2 Cervicalgia (principal); M47.812 Spondylosis without myelopathy or radiculopathy, cervical region
CPT/HCPCS: 72141

== ENCOUNTER → 2022-03-05 09:31 | Outpatient (CLI) | payer OTHER, SELFPAY ==
--- NOTE | ~2022-03-05 | MR_ITS ---
EXAMINATION: MR ankle LT wo con DATE: 03/05/2022 10:21 INDICATION: Partial Achilles tear, pain indicated by the marker, worsening. TECHNIQUE: Magnetic resonance imaging (MRI) of the left ankle was performed without intravenous contr ast. Sequences included sagittal PD-weighted FS FSE, sagittal PD-weighted FSE, coronal PD-weighted FS FSE, coronal PD-weighted FSE, axial PD-weighted FS FSE, and axial PD-weighted FSE. COMPARISON: None. FINDINGS: Medial ankle ligaments: Intact. Lateral ankle ligaments: Intact. Tendons: Focal, partial-thickness defect within the anteromedial aspect of the Achilles tendon, traversing hanny roximately half the tendon thickness. No retraction. Abnormal signal and thinning of the paranasal br lyn tendon. The remaining plantar and dorsiflex her tendons are intact. Plantar fascia: Mild enthesopathy, otherwise unremarkable. Bones/other: Mild degenerative change at the tibiotalar joint and multiple midfoot joints. Reactive marrow edema i n the posterior calcaneus. Fluid: Retrocalcaneal bursal fluid collection IMPRESSION: 1. Partial-thickness Achilles tendon tear. 2. Retrocalcaneal bursitis. Reviewed, dictated and finalized at location K.
== END ==
DX: M25.571 Pain in right ankle and joints of right foot (principal); S86.012A Strain of left Achilles tendon, initial encounter; M71.572 Other bursitis, not elsewhere classified, left ankle and foot
CPT/HCPCS: 73721

== ENCOUNTER → 2022-03-18 12:07 | Outpatient (CLI) | payer OTHER, SELFPAY ==
--- NOTE | ~2022-03-18 | MM_ITS ---
EXAMINATION: MM screening jen BI w pierre HISTORY: Screening mammogram TECHNIQUE: Craniocaudal and mediolateral oblique 3-D tomosynthesis images were obtained and synthetic 2-D images were generated. CAD analysis was submitted and interpreted. COMPARISON: 11/12/2020, 05/17/2019, 04/04/2018 bilateral screening mammogram examinations BREAST PARENCHYMAL COMPOSITION: The breasts are almost entirely fatty. FINDINGS: There is no evidence of suspicious mass, calcification, or architectural distortion to sugg est malignancy in either breast. There has been no suspicious interval change. IMPRESSION: 1. No mammographic evidence of malignancy. 2. Recommend routine screening mammography in one year. BI-RADS Category 1: Negative Reviewed, dictated and finalized at location A.
== END ==
PROVIDERS: PCP Family Medicine; Visit Provider Family Medicine
DX: Z12.31 Encounter for screening mammogram for malignant neoplasm of breast (principal)
CPT/HCPCS: 77063; 77067

== ENCOUNTER 2023-01-05 14:19 | Outpatient (CLI) | payer OTHER, SELFPAY ==
--- NOTE | 2023-01-05 14:21 | ECHO_ITS ---
Patient Info Name: Gwen Cruz Age: 72 years : 1950 Gender: Female Ht: 61 in Wt: 155 lbs BSA: 1.76 m2 HR: 88 bpm BP: 122 / 84 mmHg Technical Quality: Fair Exam Date: 01/05/2023 2:46 PM Exam Location: [facility] Patient Status: Outpatient Admit Date: 01/05/2023 Staff Ordering Physician: Pilar Eldridge MD Water Pollution Control Inspector: Monse Sánchez RDCS Attending Provider: Pilar Eldridge MD Referring Physician: Chente MAN; Exam Type: CA echo doppler color flow Study Info Indications R06.02 - Shortness of breath Complete two-dimensional, color flow and Doppler transthoracic echocardiogram is performed. Summary 1. Complete two-dimensional, color flow and Doppler transthoracic echocardiogram is performed. 2. Left ventricular chamber dimension is normal. 3. Ventricular septum is sigmoid shaped. No LVOT obstruction. 4. Left ventricular systolic function is normal, estimated at 60-65%. 5. The left ventricular diastolic function is grade I diastolic dysfunction. 6. E/e' 8 is minimally elevated. 7. There is mild aortic valve sclerosis. 8. The mitral valve has moderately calcified annulus. 9. There is trace tricuspid valve regurgitation. 10. No pulmonary hypertension, estimated pulmonary arterial systolic pressure is 34 mmHg. Left Ventricle E/e' 8 is minimally elevated. Ventricular septum is sigmoid shaped. No LVOT obstruction. Left ventricular chamber dimension is normal. Left ventricular systolic function is normal, estimated at 60-65%. The left ventricular diastolic function is grade I diastolic dysfunction. Right Ventricle Right ventricular chamber dimension is normal. Right ventricular systolic function is normal. Left Atria Left atrial chamber dimension is normal. Right Atria Right atrial chamber dimension is normal. Aortic Valve The aortic valve is trileaflet. There is mild aortic valve sclerosis. There is no aortic valve stenosis. There is no aortic valve regurgitation. Pulmonic Valve There is no pulmonic regurgitation. Mitral Valve The mitral valve has moderately calcified annulus. There is no mitral valve stenosis. There is no mitral valve regurgitation. Tricuspid Valve There is trace tricuspid valve regurgitation. No pulmonary hypertension, estimated pulmonary arterial systolic pressure is 34 mmHg. Pericardium/Pleural There is no pericardial effusion. Inferior Vena Cava Normal inferior vena cava with >50% collapse upon inspiration consistent with normal right atrial pressure, 5 mmHg. Aorta The aortic root size at the sinus of Valsalva is normal. Left Ventricular Outflow Tract Name Value Normal LVOT 2D LVOT Diameter 2.0 cm LVOT Doppler LVOT Peak Gradient 5 mmHg LVOT Mean Gradient 3 mmHg LVOT VTI 19 cm LVOT VTI/AV VTI Ratio 0.7 LVOT Stroke Volume 59 ml LVOT CO 15.2 l/min LVOT CI 8.6 l/min/m2 Pulmonic Valve
== END 2023-01-05 14:20 | disposition home or self-care (01) ==
LOC: ANHCARD 14:20
PROVIDERS: PCP Family Medicine; Visit Provider Family Medicine
DX: R06.02 Shortness of breath (principal); Z86.711 Personal history of pulmonary embolism; I35.8 Other nonrheumatic aortic valve disorders
CPT/HCPCS: 93306

== ENCOUNTER 2023-01-22 13:20 | Emergency (ER) | payer OTHER, SELFPAY ==
[2023-01-22 13:30] VITALS: BP 153/89; PULSE 83; RESP 16; TEMP 35.8; O2SAT 99
[2023-01-22 13:33] VITALS: BP 153/89; PULSE 83; RESP 16; TEMP 35.8; O2SAT 99
--- NOTE | 2023-01-22 13:38 | ED.NECK ---
HPI - Neck Pain/Injury General Chief Complaint: Neck Pain/Injury Stated Complaint: neck pain Time Seen by Provider: 01/22/23 13:53 Mode of arrival: ambulatory Limitations: no limitations History of Present Illness HPI Narrative: 72 year old female presents with concern for pain that starts behind the right ear radiates down the neck and on to the chest, into the hairline. Reports it feels like a cactus is poking her. She denies any injury or trauma. She denies any pain to exacerbating or relieving factors. She reports symptoms started yesterday. MD complaint: neck pain Related Data Home Medications Medication Instructions Recorded Confirmed aspirin 325 mg tablet 325 mg PO DAILY 09/19/19 12/20/22 calcium carbonate 600 mg-vitamin 2 cap PO BID 07/22/20 12/20/22 D3 5 mcg (200 unit) capsule (Calcium 600 + D(3)) Allergies Allergy/AdvReac Type Severity Reaction Status Date / Time atorvastatin Allergy Unknown TONGUE Verified 01/22/23 13:29 BURNING Sulfa (Sulfonamide Allergy Unknown Unknown Verified 01/22/23 13:29 Antibiotics) COVID-19 vacc, bv (Orig, AdvReac Mild Fatigued Verified 01/22/23 13:29 Omicron BA.4/5) (Moderna) [From Moderna COVID Bival(6y up)(PF)] diazepam AdvReac Unknown hyperactivi Verified 01/22/23 13:29 ty montelukast AdvReac Unknown Cough Verified 01/22/23 13:29 oxycodone AdvReac Unknown TONGUE Verified 01/22/23 13:29 BURNING rosuvastatin AdvReac Unknown tongue Verified 01/22/23 13:29 burning SUNSCREENS Allergy Intermediate ITCHING Uncoded 01/22/23 13:29 Review of Systems Review of Systems: CONSTITUTIONAL: Denies malaise, chills, sweats, or fever. EYES: Denies visual changes, redness, or discharge. ENT: Denies rhinorrhea, congestion, sinus pain, otalgia. Reports mild sore throat. CARDIOVASCULAR: Denies chest pain, palpitations, or edema. RESPIRATORY: Denies cough or dyspnea. GASTROINTESTINAL: Denies abdominal pain, nausea, vomiting, diarrhea, bloody, or mucous stools. GENITOURINARY: Denies dysuria or hematuria. SKIN: Denies rash or itching. MUSCULOSKELETAL: Denies back pain, joint pain, or myalgia. Reports prickly pain is starts behind the right ear, goes down the neck to the chest and up into the hairline NEUROLOGIC: Denies numbness, weakness, or headache. PSYCHIATRIC: Denies anxiety or depression. All systems reviewed & are unremarkable except as noted in HPI and below PMFSH Past Medical History Medical History (Updated 01/22/23 @ 13:59 by Adilene Mayberry NP) Actinic keratoses Bicipital tendinitis, left shoulder Diverticulitis large intestine w/o perforation or abscess w/o bleeding DVT prophylaxis FH: colon polyps History of pulmonary embolism (~2010) 2010 Normal colonoscopy 2018 no polyps. 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
== END 2023-01-22 14:05 | disposition home or self-care (01) ==
PROVIDERS: Emergency Provider Nurse Practitioner; PCP Family Medicine
DX: B02.9 Zoster without complications (principal); Z86.711 Personal history of pulmonary embolism
CPT/HCPCS: 99213; G0463

== ENCOUNTER 2023-01-23 19:47 | Emergency (ER) | payer OTHER, SELFPAY ==
[2023-01-23 19:51] VITALS: BP 155/85; PULSE 95; RESP 16; TEMP 37.1; O2SAT 95
--- NOTE | 2023-01-23 22:28 | PC.NURSE ---
pt. states she is supposed to wear glasses for distance , does not have them
--- NOTE | 2023-01-23 22:30 | ED.GENADULT ---
HPI - General Adult General Chief complaint: Skin/Abscess/Foreign Body <Ga Romano PA-C - Last Filed: 01/24/23 01:02> Stated complaint: shingles <LITZY Pascual Last Filed: 01/24/23 01:02> Time Seen by Provider: 01/23/23 21:43 <LITZY Pascual Last Filed: 01/24/23 01:02> Source: patient <LITZY Pascual Last Filed: 01/24/23 01:02> Mode of arrival: ambulatory <LITZY Pascual Last Filed: 01/24/23 01:02> Limitations: no limitations <LITZY Pascual Last Filed: 01/24/23 01:02> History of Present Illness HPI narrative: This is a 72-year-old female who presents to the ED with chief complaint of painful rash x2 days. She was diagnosed with shingles at an urgent care yesterday. Started on valacyclovir, gabapentin, tramadol. States the pain is now spreading from her neck into her face, with some eye irritation. Denies visual changes. Denies hearing loss or ear pain. States she has yet to start taking the gabapentin, but planning on taking it tonight. Denies fevers, chills. Denies any immunocompromising medical history. <Ga Romano PA-C - Last Filed: 01/24/23 01:02> Related Data Home medications: Home Medications Medication Instructions Recorded Confirmed aspirin 325 mg tablet 325 mg PO DAILY 09/19/19 12/20/22 calcium carbonate 600 mg-vitamin 2 cap PO BID 07/22/20 12/20/22 D3 5 mcg (200 unit) capsule (Calcium 600 + D(3)) <LITZY Pascual Last Filed: 01/24/23 01:02> Allergies/adverse reactions: Allergies Allergy/AdvReac Type Severity Reaction Status Date / Time atorvastatin Allergy Unknown TONGUE Verified 01/23/23 19:51 BURNING Sulfa (Sulfonamide Allergy Unknown Unknown Verified 01/23/23 19:51 Antibiotics) COVID-19 vacc, bv (Orig, AdvReac Mild Fatigued Verified 01/23/23 19:51 Omicron BA.4/5) (Moderna) [From Moderna COVID Bival(6y up)(PF)] diazepam AdvReac Unknown hyperactivi Verified 01/23/23 19:51 ty montelukast AdvReac Unknown Cough Verified 01/23/23 19:51 oxycodone AdvReac Unknown TONGUE Verified 01/23/23 19:51 BURNING rosuvastatin AdvReac Unknown tongue Verified 01/23/23 19:51 burning SUNSCREENS Allergy Intermediate ITCHING Uncoded 01/23/23 19:51 <Ga Romano PA-C - Last Filed: 01/24/23 01:02> Review of Systems Review of Systems: CONSTITUTIONAL: Denies fever, chills, or sweats. EYES: Denies visual changes, redness, or discharge. ENT: Denies rhinorrhea, congestion, sore throat, or otalgia. CARDIOVASCULAR: Denies chest pain, palpitations, or edema. RESPIRATORY: Denies cough or dyspnea. GASTROINTESTINAL: Denies abdominal pain, nausea, vomiting, or diarrhea. GENITOURINARY: Denies dysuria or hematuria. SKIN: Endorses painful rash. MUSCULOSKELETAL: Denies back pain, joint pain, or myalgia. NEUROLOGIC: Denies headache, numbness, dizziness, or weakness. PSYCHIATRIC: Denies anxiety or depression. <Ga Romano PA-C - Last Filed: 01/24/23 01:02> [facility] Past Medical History Medical History: Medical History (Updated 01/24/23 @ 00:00 by Background Daemon) Actinic keratoses Bicipital tendinitis, left shoulder Diverticulitis large intestine w/o perforation or abscess w/o bleeding DVT prophylaxis FH: colon polyps History of pulmonary embolism (~2010) 2010 Normal colonoscopy 2018 no polyps. repeat in 5 years Normal nuclear stress test 5.18.20 Postmenopausal Shingles <Ga Romnao PA-C - Last Filed: 01/24/23 01:02> Surgical History Surgical History: Surgical History H/O shoulder surgery x2 History of adenoidectomy History of appendectomy (~2009) History of hysterectomy (~1997) History of knee surgery History of partial colectomy sigmoid 10.13.20/ laparoscopic History of surgical removal of squamous cell carcinoma of skin of scientologist region on her hand not scientologist History of tonsillectomy Hx of c
== END 2023-01-23 23:20 | disposition home or self-care (01) ==
PROVIDERS: Emergency Provider Emergency Medicine; PCP Family Medicine
DX: B02.9 Zoster without complications (principal); Z86.718 Personal history of other venous thrombosis and embolism
CPT/HCPCS: 99283

== ENCOUNTER → 2023-06-01 14:36 | Outpatient (CLI) | payer OTHER, SELFPAY ==
--- NOTE | ~2023-06-01 | DEXA_ITS ---
Bone Density Report Name: BONNIE GERARD Age: 73 Sex: Female Ethnicity: White Date of : 1950 Indication: postmenopausal; screening for osteoporosis; height loss; hysterectomy; Referring Provider: JEROME MELENDEZ Study: Bone densitometry was performed. Exam Date: June 01, 2023 Accession number: [id number] Bone Density: Region BMD T-score Z-score Classification AP Spine (L1-L4) 0.984 -0.6 1.6 Normal Femoral Neck (Left) 0.770 -0.7 1.2 Normal Total Hip (Left) 0.885 -0.5 1.1 Normal Femoral Neck (Right) 0.710 -1.3 0.6 Osteopenia Total Hip (Right) 0.906 -0.3 1.3 Normal Total Hip Mean 0.896 -0.4 1.2 Normal World Health Organization criteria for BMD impression classify patients as: Normal (T-score at or above -1.0), Osteopenia (T-score between -1.0 and -2.5), or Osteoporosis (T-score at or below -2.5). 10-year Fracture Risk(1): Major Osteoporotic Fracture 9.2% Hip Fracture 1.1% Reported Risk Factors: [place] (), Neck BMD=0.710, BMI=30.3 (1) FRAX(R) Version 3.08. Fracture probability calculated for an untreated patient. Fracture probability may be lower if the patient has received treatment. Previous Exams: Region Exam Age BMD T-score BMD Change BMD Change Date g/cm2 vs Baseline vs Previous AP Spine(L1-L4) 06/01/2023 73 0.984 -0.6 -0.053* 0.034* 07/14/2017 67 0.950 -0.9 -0.087* -0.087* 09/02/2013 63 1.037 -0.1 Total Hip(Left) 06/01/2023 73 0.885 -0.5 -0.081* -0.056* 07/14/2017 67 0.940 0.0 -0.025 -0.025 09/02/2013 63 0.966 0.2 Total Hip(Right) 06/01/2023 73 0.906 -0.3 -0.056* -0.061* 07/14/2017 67 0.966 0.2 0.005 0.005 09/02/2013 63 0.962 0.2 *Denotes significance at 95% confidence level, LSC for AP Spine = 0.022 g/cm2, LSC for Total Hip = 0.027 g/cm2 Clinical Information Provided by Patient: Has used the following medications: Vitamin D, Calcium Has the following medical conditions: Hysterectomy Patient maximum height was 62 Menopause Age: 49 No regular weight bearing exercise Does not regularly consume dairy products Onset of menses at age 16 Number of children 2 Impression: The patient has low bone mass, based on the Right Femoral Neck T-score. The patient has an estimated ten-year risk of hip fracture of 1.1% and an estimated ten-year risk of major fracture of 9
--- NOTE | ~2023-06-01 | MM_ITS ---
EXAMINATION: MM screening [facility] BI w pierre HISTORY: Screening TECHNIQUE: Craniocaudal and mediolateral oblique 3-D tomosynthesis images were obtained and synthetic 2-D images were generated. CAD analysis was submitted and interpreted. COMPARISON: Comparison to multiple prior studies sequentially, with oldest reviewed study dated 02/07. BREAST PARENCHYMAL COMPOSITION: There are scattered areas of fibroglandular density. FINDINGS: There is no evidence of suspicious mass, calcification, or architectural distortion to sugg est malignancy in either breast. There has been no suspicious interval change. IMPRESSION: 1. No mammographic evidence of malignancy. 2. Recommend routine screening mammography in one year. BI-RADS Category 1: Negative Reviewed, dictated and finalized at location A.
== END ==
PROVIDERS: PCP Family Medicine; Visit Provider Family Medicine
DX: Z12.31 Encounter for screening mammogram for malignant neoplasm of breast (principal); Z13.820 Encounter for screening for osteoporosis; M85.851 Other specified disorders of bone density and structure, right thigh
CPT/HCPCS: 77063; 77067; 77080

== ENCOUNTER 2024-02-09 12:38 | Outpatient (CLI) | payer OTHER, SELFPAY ==
--- NOTE | ~2024-02-09 | US_ITS ---
EXAMINATION: US soft tissue LE LT DATE: 02/09/2024 12:58 INDICATION: Hemangioma with skin lesion at the left lower leg TECHNIQUE: Multiple grayscale and Doppler ultrasound images of the region of concern at the anterior left lower leg were obtained. COMPARISON: None FINDINGS: There is focal thickening of the subcutaneous tissues with reticulated pattern of hypoechoic subcutan eous edema at the region of concern. This surrounds an approximately 1.7 x 0.5 x 1.1 cm hypoechoic re gion the margins of which are difficult to distinguish from the adjacent edema. The hypoechoic region extends to within 2 mm of the both the skin surface and surface of the underlying tibia. IMPRESSION: 1. Nonspecific 1.7 x 0.5 x 1.1 cm hypoechoic region surrounding edema in the subcutaneous tissues at the region of concern. This could represent hematoma, abscess or phlegmonous change, vascular malform ations hemangioma or other neoplasm either benign or malignant. Reviewed, dictated and finalized at location A. IMPRESSION: 1. Nonspecific 1.7 x 0.5 x 1.1 cm hypoechoic region surrounding edema in the north bcutaneous tissues at the region of concern. This could represent hematoma, abs cess or phlegmonous change, vascular malformations hemangioma or other neoplasm either benign or malignant.
== END 2024-02-09 12:39 ==
DX: D18.00 Hemangioma unspecified site (principal); T14.8XXA Other injury of unspecified body region, initial encounter; X58.XXXA Exposure to other specified factors, initial encounter; R22.42 Localized swelling, mass and lump, left lower limb
CPT/HCPCS: 76882

== ENCOUNTER 2024-05-14 09:41 | Outpatient (CLI) | payer OTHER, SELFPAY ==
--- NOTE | ~2024-05-14 | XR_ITS ---
Clinical Indication: Chest pain PA and lateral views of the chest: Comparison: 08/03/2020 Findings: The lungs are clear, without evidence of focal consolidation or pleural effusion. Cardiome diastinal silhouette is within normal limits. Bones and soft tissues are unremarkable. Impression: Normal chest. Reviewed, dictated and finalized at location . Impression: Normal chest.
== END 2024-05-14 09:42 ==
PROVIDERS: PCP Family Medicine; Visit Provider Family Medicine
DX: R07.9 Chest pain, unspecified (principal)
CPT/HCPCS: 71046

== ENCOUNTER 2024-06-02 11:58 | Emergency (ER) | payer OTHER, SELFPAY ==
[2024-06-02] VITALS (10 sets, daily range): BP systolic 123–144; BP diastolic 75–85; PULSE 74–88; RESP 15–30; TEMP 36.5–36.7; O2SAT 96–100
--- NOTE | ~2024-06-02 | XR_ITS ---
XR chest 2V DATE: 06/02/2024 14:27 INDICATION: Shortness of breath. Abdominal pressure. TECHNIQUE: PA and lateral views COMPARISON: 05/14/2024 2 view chest, reported normal FINDINGS: Normal heart size. No hilar or mediastinal enlargement. No pulmonary infiltrate or consolid ation, pleural effusion or pulmonary vascular congestion or pneumothorax. Mild thoracic scoliosis. Surgical clips, right upper quadrant, likely due to cholecystectomy. IMPRESSION: No active cardiopulmonary disease Status post cholecystectomy Reviewed, dictated and finalized at location J.
--- NOTE | 2024-06-02 12:21 | ECG_ITS ---
Test Date: 2024-06-02 12:12:59 Measurements Intervals [place] Rate: 78 P: 38 UT: 169 QRS: -14 QRSD: 96 T: 30 QT: 365 QTc: 417 Interpretive Statements SINUS RHYTHM NORMAL ECG No previous ECG available for comparison Electronically Signed On 06-03-2024 10:51:58 CDT by Oz Peñaloza M.D.
[2024-06-02 12:43] LABS: Basophils Percent Auto 0.5 % (0.2-1.2); Eosinophils Absolute Auto 0.2 K/mm3 (0-0.3); Eosinophils Percent Auto 3.2 % (0-4.4); Hemoglobin 13.5 g/dL (12.0-15.0); Immature Granulocyte Absolute 0.02 K/mm3 (0.00-0.031); Immature Granulocyte Percent A 0.3 % (0-0.5); Lymphocytes Absolute Auto 1.74 K/mm3 (0.9-3.2); Lymphocytes Percent Auto 29.6 % (18.3-44.2); Mean Corpuscular HGB Conc 32.1 g/dl (32-36); Mean Corpuscular Hemoglobin 30.1 pg (26-34); Mean Corpuscular Volume 93.5 fl (80-100); Mean Platelet Volume 8.6 fl (7.4-10.4); Monocytes Absolute Auto 0.4 K/mm3 (0.1-0.6); Monocytes Percent Auto 7.5 % (2.6-8.5); Neutrophils Absolute Auto 3.5 K/mm3 (1.3-6.7); Neutrophils Percent Auto 58.9 % (45.5-73.1); Platelet Count Result 249 k/mm3 (150-375); Red Blood Count 4.49 M/mm3 (4.2-5.4); Red Cell Distribution Width 13.2 % (11.5-14.5); White Blood Count 5.9 K/mm3 (4.5-10.0)
[2024-06-02 12:53] LABS: Alanine Aminotransferase 18 U/L (6-35); Albumin Level 4.3 g/dL (3.5-5.1); Alkaline Phosphatase 84 U/L (38-126); Anion Gap 8 mmol/L (4-12); Aspartate Amino Transferase 23 U/L (14-36); Bilirubin,Total 0.5 mg/dL (0.2-1.3); Blood Urea Nitrogen 18 mg/dL (7-17); Carbon Dioxide 27 mmol/L (22-30); Chloride 103 mmol/L (98-107); Estimated CRCL calculation 45 ml/min; Estimated Glomerular Filt Rate > 60; Glucose 101 mg/dL (65-110); Potassium 4.3 mmol/L (3.4-5.0); Sodium 138 mmol/L (137-145)
[2024-06-02 12:54] LABS: INR 0.9; Partial Thromboplastin Time 25.6 Seconds (22.3-36.8)
--- NOTE | 2024-06-02 13:01 | ED.GENADULT ---
HPI - General Adult General Chief complaint: Shortness of Breath/Dyspnea Stated complaint: SOB Time Seen by Provider: 06/02/24 12:09 History of Present Illness HPI narrative: 74-year-old female presents to the emergency department for evaluation for shortness of breath and wheezing. Patient reports this has been an issue for at least last few months. Patient states that she was not having any increased shortness of breath today but that a co-worker stated that she was wheezing and that she was breathing hard and recommended that she be evaluated. Patient denies any acute worsening of her symptoms today but was just strongly encouraged to be evaluated. Upon arrival to emergency department patient appears to be in no distress. Patient does have prior history of pulmonary embolism secondary to a knee replacement. Patient states she has never been a smoker. Related Data Home Medications Medication Instructions Recorded Confirmed aspirin 325 mg tablet 325 mg PO DAILY 09/19/19 05/13/24 calcium carbonate 600 mg-vitamin 2 cap PO BID 07/22/20 05/13/24 D3 5 mcg (200 unit) capsule (Calcium 600 + D(3)) Allergies Allergy/AdvReac Type Severity Reaction Status Date / Time atorvastatin Allergy Unknown TONGUE Verified 06/02/24 11:59 BURNING Sulfa (Sulfonamide Allergy Unknown Unknown Verified 06/02/24 11:59 Antibiotics) COVID-19 vacc, bv (Orig, AdvReac Mild Fatigued Verified 06/02/24 11:59 Omicron BA.4/5) (Moderna) [From Moderna COVID Bival(6y up)(PF)] diazepam AdvReac Unknown hyperactivi Verified 06/02/24 11:59 ty oxycodone AdvReac Unknown TONGUE Verified 06/02/24 11:59 BURNING rosuvastatin AdvReac Unknown tongue Verified 06/02/24 11:59 burning SUNSCREENS Allergy Intermediate ITCHING Uncoded 06/02/24 11:59 Review of Systems Review of Systems: All systems reviewed & are unremarkable except as noted in HPI and below PMFSH Past Medical History Medical History Actinic keratoses Bicipital tendinitis, left shoulder Diverticulitis large intestine w/o perforation or abscess w/o bleeding DVT prophylaxis FH: colon polyps History of pulmonary embolism (~2010) 2010 Normal colonoscopy 2017 no polyps. repeat in 5 years Normal nuclear stress test 5.18.20 Postmenopausal Shingles Surgical History Surgical History H/O shoulder surgery x2 History of adenoidectomy History of appendectomy (~2009) History of hysterectomy (~1997) History of knee surgery History of partial colectomy sigmoid 07.28.20/ laparoscopic History of surgical removal of squamous cell carcinoma of skin of mandaeism region on her hand not mandaeism History of tonsillectomy Hx of cholecystectomy (~2016) S/P colectomy 07/28/2020 TAMERA sigmoid colectomy Family History Family History Father Carcinoma of colon Family history of hypercholesterolemia Hypertension Family history of cardiovascular disease Family history of heart disease in male family member before age 55 Mother Carcinoma of colon Family history of hypercholesterolemia Acute myocardial infarction CHF (congestive heart failure) Social History Social History Smoking status: Never smoker Alcohol intake: current Alcohol use details: 1 drink per year Substance use: never Substance use type: does not use Do You Feel Safe in your Home?: Yes Lack of Transportation: No Lack of Food: Never True Current Housing: I Have Housing Concerned About Future Housing: No Difficulty Paying Gas/Electric Bills: No Difficulty Paying for Meds: No Currently Unemployed: No Education: High School Diploma/GED Difficulty w/ Childcare or Family Care: No Living arrangements: with family Occupation/Education: occupation Gender id
[2024-06-02 13:02] LABS: NT Pro B Type Natriuretic Pept 85 pg/mL (19.9-100)
[2024-06-02 13:03] LABS: D Dimer < 0.27 ug/mL (<0.48)
[2024-06-02] MEDS: ALBUTEROL SULFATE NEB 2.5 MG/3 ML INH INHALATION (13:16)
[2024-06-02 13:19] LABS: Influenza A QL RT-PCR Negative (Negative); Influenza B QL RT-PCR Negative (Negative); RSV RNA, RT-PCR Negative (Negative); SARS-CoV-2 RNA PCR Negative (Negative)
[2024-06-02 14:20] LABS: Add Urine Microscopic? YES; Appearance Urine Clear (Clear); Bacteria Urine None Seen /hpf; Bilirubin Urine Negative (Negative); Blood Urine Trace (Negative); Color Urine Yellow (Yellow); Glucose Urine UA Negative (Negative); Ketones Urine Negative (Negative); Leukocyte Esterase Ur Negative LEU/UL (Negative); Nitrate Urine Negative (Negative); Non Pathogenic Casts 0-2; Protein Urine Negative (Negative); Specific Grav Ur 1.021 (1.001-1.035); Squamous Epithelial Cell Urine None Seen /hpf (Few); Urobilinogen Urine 0.2 mg/dL (<2.0); WBC Urine 0-5 /hpf (0-3)
== END 2024-06-02 15:45 | disposition home or self-care (01) ==
PROVIDERS: Emergency Provider Emergency Medicine; PCP Family Medicine
DX: R06.00 Dyspnea, unspecified (principal); Z20.822 Contact with and (suspected) exposure to COVID-19; Z96.659 Presence of unspecified artificial knee joint; Z86.711 Personal history of pulmonary embolism; Z85.828 Personal history of other malignant neoplasm of skin; Z90.710 Acquired absence of both cervix and uterus; Z90.49 Acquired absence of other specified parts of digestive tract; Z79.82 Long term (current) use of aspirin; Z79.899 Other long term (current) drug therapy
CPT/HCPCS: 36415; 71046; 80053; 81001; 83880; 85025; 85380; 85610; 85730; 87637; 93005; 94640; 99283

== ENCOUNTER 2024-07-02 15:22 | Outpatient (CLI) | payer OTHER, SELFPAY ==
--- NOTE | ~2024-07-02 | MM_ITS ---
EXAMINATION: MM screening [facility] BI w pierre HISTORY: Screening mammogram TECHNIQUE: Craniocaudal and mediolateral oblique 3-D tomosynthesis images were obtained and synthetic 2-D images were generated. CAD analysis was submitted and interpreted. COMPARISON: 06/01/2023, 03/18/2022, 11/12/2020, 05/17/2019 BREAST PARENCHYMAL COMPOSITION:Not Dense. The breasts are almost entirely fatty FINDINGS: No suspicious mass, calcification, or architectural distortion are identified in either jennifer ast to suggest malignancy. There has been no suspicious interval change. IMPRESSION: No mammographic evidence of malignancy. Recommend routine screening mammography in one year. BI-RADS Category 1: Negative Reviewed, dictated and finalized at location .
== END 2024-07-02 15:23 | disposition home or self-care (01) ==
LOC: MICIMG 15:23
PROVIDERS: PCP Family Medicine; Visit Provider Student in an Organized Health Care Education/Training Program
DX: Z12.31 Encounter for screening mammogram for malignant neoplasm of breast (principal)
CPT/HCPCS: 77063; 77067

== ENCOUNTER 2024-08-05 07:59 | Outpatient (CLI) | payer OTHER, SELFPAY ==
--- NOTE | ~2024-08-05 | CT_ITS ---
CT Scan of the Chest without Contrast: Clinical Indication: Shortness of breath Technique: Contiguous sections were acquired throughout the chest without intravenous contrast. Dose reduction technique was used on this scan by utilizing automated exposure control and iterative recon struction technique. The dose-length product (DLP) was 192.52 mGy-cm. Findings: There is no evidence of any significant mediastinal, hilar or axillary lymphadenopathy. The mediastin al soft tissues appear normal. There is no evidence of pleural or pericardial effusion. The lungs are clear. No pulmonary nodules or infiltrates are noted. Images through the upper abdomen reveal no abnormalities. Impression: No significant abnormalities seen. Reviewed, dictated and finalized at location . Impression: No significant abnormalities seen.
--- NOTE | 2024-08-05 13:39 | WPDSIXMINUTE ---
Six Minute Walk Procedure Procedure Performed Pulmonary Stress Test (6 min walk) Six Minute Walk Six Minute Walk: This is a 6 minute walk test. The test was performed and interpreted in accordance with the 2014 ERS/ATS task force guidelines. Findings: The patient's resting room air oxygen saturation measured by pulse oximetry was 98%, the heart rate was 68 bpm, and the modified Clarence dyspnea score was 2. Patient ambulated for 396 meters and oxygen saturation remained 96 to 98%. At the end of the study the heart rate was 94 bpm and the modified Clarence dyspnea score was 3-4. The patient did not qualify for supplemental oxygen at rest or with ambulation. There are no prior studies for comparison.
--- NOTE | 2024-08-05 13:41 | WPDPFTINT ---
PFT Procedure Performed PFT Procedure Performed Spirometry with Pre/Post Bronchodilator Plethysmography (Lung Vol) Diffusing Cap (DLCO) Flow Vol Loop PFT Interpretation This is a pulmonary function test with pre and post-bronchodilator spirometry, plethysmography and diffusing capacity. The test was performed and results interpreted in accordance with the 2019 and 2005 ATS/ERS Task Force guidelines respectively using the Global Lung Function Initiative-2012 reference equations. Patient demonstrated good effort and cooperation. Reproducibility criteria were met. The quality of the pre bronchodilator spirometry maneuver was Grade A and post bronchodilator spirometry maneuver was Grade A. Findings: Spirometry: The contour the inspiratory and expiratory flow tracing are normal. The pre bronchodilator FVC is 2.32 L, 93% predicted. The pre bronchodilator FEV1 is 1.83 L, 94% predicted. The pre bronchodilator FEV1: FVC ratio is 79%. The post bronchodilator FVC is 2.38 L, representing a 3% increase. The post bronchodilator FEV1 is 1.96 L, representing a 9% increase. The post bronchodilator FEV1: FVC ratio is 82%. Plethysmography: The total lung capacity is 3.67 L, 80% predicted. The functional residual capacity is 1.54 L, 59% predicted. The residual volume is 1.25 L, 60% predicted. Diffusing capacity: The diffusing capacity unadjusted for hemoglobin and carboxyhemoglobin is 17.9, 94% predicted. The diffusing capacity adjusted for alveolar volume is 5.41, 123% predicted. In comparison to previous pulmonary function testing on 04/06/2022 the post bronchodilator FVC is unchanged from 2.43 L to 2.38 L. The post bronchodilator FEV1 is unchanged from 1.99 L to 1.96 L. The total lung capacity is unchanged from 3.78 L to 3.67 L. The functional residual capacity is unchanged from 1.34 L to 1.54 L. The residual volume is unchanged from 1.18 L to 1.25 L. The diffusing capacity unadjusted for hemoglobin and carboxyhemoglobin is unchanged from 16.1 to 17.9. The diffusing capacity adjusted for alveolar volume is unchanged from 5.15 to 5.41. Impression: The spirometry is normal without evidence of an obstructive abnormality. There is no significant improvement after inhaling a single dose of albuterol. The total lung capacity is normal with a decreased functional residual capacity and residual volume. This is an abnormal but nonspecific lung volume pattern. The diffusing capacity is normal. In comparison to previous pulmonary function testing on 04/06/2022 there has been no significant change in the FVC, FEV1, total lung capacity, functional residual capacity, residual volume or diffusing capacity. Clinical correlation is recommended.
== END 2024-08-05 08:00 | disposition home or self-care (01) ==
LOC: ANHPFT 08:02
PROVIDERS: PCP Family Medicine; Visit Provider Physician Assistant
DX: R06.02 Shortness of breath (principal)
CPT/HCPCS: 71250; 94060; 94618; 94726; 94729

== ENCOUNTER 2025-07-10 11:40 | Outpatient (CLI) | payer MEDICARE, SELFPAY ==
--- NOTE | ~2025-07-10 | MM_ITS ---
EXAMINATION: MM screening [facility] BI w pierre HISTORY: Screening TECHNIQUE: Craniocaudal and mediolateral oblique 3-D tomosynthesis images were obtained and synthetic 2-D images were generated. CAD analysis was submitted and interpreted. COMPARISON: Comparison to multiple prior studies sequentially, with oldest reviewed study dated 05/17/2019. BREAST PARENCHYMAL COMPOSITION: The breasts are almost entirely fatty. FINDINGS: There is no evidence of suspicious mass, calcification, or architectural distortion to suggest malignancy in either breast. Scattered benign-appearing calcifications are present. IMPRESSION: 1. No mammographic evidence of malignancy. 2. Recommend routine screening mammography in one year. BI-RADS Category 2: Benign finding(s). Reviewed, dictated and finalized at location B.
--- NOTE | ~2025-07-10 | DEXA_ITS ---
Bone Density Report Name: BONNIE GERARD Age: 75 Sex: Female Ethnicity: White Date of : 1950 Indication: postmenopausal; screening for osteoporosis; cancer; asthma or emphysema; hysterectomy; Referring Provider: KACEY MARQUEZ Study: Bone densitometry was performed. Exam Date: July 10, 2025 Accession number: [id number] Bone Density: Region BMD T-score Z-score Classification AP Spine(L1-L4) 1.026 -0.2 2.1 Normal Femoral Neck (Left) 0.719 -1.2 0.8 Osteopenia Total Hip (Left) 0.944 0.0 1.7 Normal Femoral Neck (Right) 0.743 -1.0 1.0 Normal Total Hip (Right) 0.942 0.0 1.7 Normal Femoral Neck Mean 0.731 -1.1 0.9 Osteopenia Total Hip Mean 0.943 0.0 1.7 Normal World Health Organization criteria for BMD impression classify patients as: Normal (T-score at or above -1.0), Osteopenia (T-score between -1.0 and -2.5), or Osteoporosis (T-score at or below -2.5). 10-year Fracture Risk(1): Major Osteoporotic Fracture 9.8% Hip Fracture 1.4% Reported Risk Factors: [place] (), Neck BMD=0.719, BMI=29.4 (1) FRAX(R) Version 3.08. Fracture probability calculated for an untreated patient. Fracture probability may be lower if the patient has received treatment. Clinical Information Provided by Patient: Has used the following medications: Vitamin D, Calcium Has the following medical conditions: Asthma or Emphysema, Cancer, Hysterectomy Patient maximum height was 61 Menopause Age: 52 No regular weight bearing exercise Does not regularly consume dairy products Drinks caffeinated beverages Onset of menses at age 15 Number of children 2 Impression: The patient has low bone mass, based on the Left Femoral Neck T-score. Discussion: BONE DENSITY IS LOW AT ONE OR MORE SKELETAL SITES. This patient's lowest T-score is low at one or more skeletal sites. It meets the World Health Organization's (WHO) criteria for ?low bone mass? (T-score between -1.0 and -2.5). The patient's 10-year risk of fracture as calculated by FRAX is less than the threshold where pharmacological therapy is recommended by the National Osteoporosis Foundation (NOF). However, all treatment decisions require clinical judgment and consideration of individual patient factors, including patient preferences, comorbidities, previous drug use, risk factors not captured in the FRAX model (e.g., frailty, falls, vitamin D deficiency, increased bone turnover, interval significant decline in bone density) and possible under or overestimation of fracture risk by FRAX. The patient should follow a healthful lifestyle (good nutrition with adequate calcium and vitamin D, and appropriate weight-bearing exercise). Follow-Up: Consider repeating this study in 2 to 3 years to reassess this patient's status, or sooner if there is some new clinical indication. Reported by: TIFFANIE on 07/10/2025 12:10:00 PM. Reviewed, dictated and finalized at location A.
== END 2025-07-10 11:41 | disposition home or self-care (01) ==
LOC: CHSIMG 11:41
PROVIDERS: PCP Family Medicine; Visit Provider Student in an Organized Health Care Education/Training Program
DX: Z12.31 Encounter for screening mammogram for malignant neoplasm of breast (principal); Z78.0 Asymptomatic menopausal state; M85.89 Other specified disorders of bone density and structure, multiple sites
CPT/HCPCS: 77063; 77067; 77080